=== PATIENT | male | born 1965 | race Two or more races ===

== ENCOUNTER 2023-06-03 18:49 | Emergency (ER) | payer MEDICAID ==
[~2023-06-03] VITALS: Ht 172.7 cm; Wt 108.9 kg
[~2023-06-03 18:49] MED LIST: B-1100 M1 PO; DOCU100 PO; MULVITA PO; Naltrexone HCl50 MG PO; PANT20 PO; SPIR25 PO; TRAZ50 PO; ZESTRIL40 M1 PO
[2023-06-03 19:27] LABS: BASOPHILS ABSOLUTE AUTO 0.05 K/mm3 (0.00-0.23); BASOPHILS PERCENT AUTO 1 % (0-2); EOSINOPHILS ABSOLUTE AUTO 0.02 K/mm3 (0.00-0.68); EOSINOPHILS PERCENT AUTO 0 % (0-6); Hematocrit 47.7 % (37.0-53.0); Hemoglobin 15.4 g/dL (13.5-17.5); IMMATURE GRAN ABSOLUTE AUTO 0.02 K/mm3 (0.00-0.10); IMMATURE GRAN PERCENT AUTO 0 % (0-1); LYMPHOCYTES ABSOLUTE AUTO 0.99 K/mm3 (0.84-5.20); LYMPHOCYTES PERCENT AUTO 14 % (21-46); MONOCYTES ABSOLUTE AUTO 0.28 K/mm3 (0.16-1.47); MONOCYTES PERCENT AUTO 4 % (4-13); Mean Corpuscular HGB 29.6 pg (26.0-34.0); Mean Corpuscular HGB Conc 32.3 g/dL (31.5-36.5); Mean Corpuscular Volume 92 fL (80-100); Mean Platelet Volume 8.7 fL (9.1-12.4); NEUTROPHILS PERCENT AUTO 80 % (41-73); Platelet Count 106 K/mm3 (150-400); RDW Coefficient Variation 16.5 % (11.7-14.2); RDW Standard Deviation 56.1 fL (35.1-46.3); White Blood Cell Count 6.86 K/mm3 (4.00-11.30)
[2023-06-03 19:59] LABS: Albumin, Blood 4.2 g/dL (3.4-5.0); Albumin/Globulin Ratio 0.9 (0.8-1.8); Bilirubin, Total 0.6 mg/dL (0.1-1.0); Bun/Creatinine Ratio 22.9 (12.0-20.0); Calcium, Blood 9.3 mg/dL (8.5-10.1); Creatinine, Blood 0.66 mg/dL (0.60-1.20); Globulin, Blood 4.7 g/dL (2.2-4.0); Potassium, Blood 4.1 mmol/L (3.5-5.5); Total Protein, Blood 8.9 g/dL (6.4-8.2)
[2023-06-03] MEDS ORDERED: NS 1,000 ML IV SCH (20:20)
[2023-06-03] MEDS ORDERED: Folic Acid 1 MG TAB PO ONE (20:20)
[2023-06-03] MEDS ORDERED: Thiamine HCl 100 MG Tab PO ONE (20:20)
[2023-06-03] MEDS ORDERED: Ondansetron HCl 2 MG / ML 2ML Vial IV ONE (20:40)
[2023-06-03] MEDS ORDERED: ONDA4ODT MM (21:59)
[2023-06-03] MEDS ORDERED: B-1100 M1 PO (21:59)
[2023-06-03] MEDS ORDERED: FOLI1 PO (21:59)
[2023-06-03] MEDS ORDERED: LORazepam 2 MG/ML 1ML Injection IV ONE (22:25)
[2023-06-04] MEDS ORDERED: Ondansetron 4 MG SoluTab SL ONE (07:55)
[2023-06-04 09:35] VITALS: BP 151/100
== END 2023-06-04 10:33 | disposition home or self-care (01) ==
LOC: ER 18:49
PROVIDERS: Student in an Organized Health Care Education/Training Program
DX: F10.229 Alcohol dependence with intoxication, unspecified (principal); Y90.8 Blood alcohol level of 240 mg/100 ml or more; K74.60 Unspecified cirrhosis of liver; I10 Essential (primary) hypertension; Z59.00 Homelessness unspecified; Z79.899 Other long term (current) drug therapy
CPT/HCPCS: 80053; 85025; 93005; 93010; 96361; 96374; 96375; 99285-25; A9270; J2060; J2405; J7030